=== PATIENT | male | born 1975 | race Two or more races ===

== ENCOUNTER 2017-09-19 | Emergency (ER) | payer SELFPAY ==
[2017-09-19] MEDS: cloNIDine HCL 0.1 MG TABLET PO ×4 (00:56→02:02)
[2017-09-19] MEDS: ONDANSETRON ODT 4 MG TAB.RAPDIS. PO ×2 (00:56)
[2017-09-19] MEDS: oxyCODONE/APAP 10/325 1 TAB TABLET PO ×2 (02:54)
== END 2017-09-19 03:30 | disposition home or self-care (01) ==
LOC: ER
DX: I10 Essential (primary) hypertension (principal); E11.9 Type 2 diabetes mellitus without complications; F14.10 Cocaine abuse, uncomplicated; F10.20 Alcohol dependence, uncomplicated
CPT/HCPCS: 70450; 99284-25; Q0162

== ENCOUNTER 2017-10-05 22:10 | Emergency (ER) | payer SELFPAY ==
[2017-10-05 22:45] LABS: BILIRUBIN,URINE NEGATIVE (NEG); CLARITY,URINE CLOUDY; COLOR,URINE OTHER; GLUCOSE,URINE 250 mg/dL (NEG); NITRITE,URINE NEGATIVE (NEG); PH,URINE 6.5; PROTEIN,URINE >=300 mg/dL (NEG-TRACE); UROBILINOGEN,URINE 0.2 mg/dL (0.2 mg/dL)
[2017-10-05 22:49] LABS: RBC,URINE TNTC /HPF (0-2)
[2017-10-05 22:51] LABS: BACTERIA,URINE 0 /HPF (0-FEW); SQUAMOUS EPITHELIAL CELL,UR OCC /LPF; WBC,URINE 0 /HPF (0-4)
[2017-10-05 23:32] LABS: POC GLUCOSE 125 mg/dL (70-99)
[2017-10-05 23:57] LABS: ADD MAN DIFF? NO
[2017-10-06] LABS: BASO % 1 % (0-3); EOS # 0.2 x10^3/uL (0.0-0.7); EOS % 2 % (0-3); HEMATOCRIT 32.8 % (39.0-53.0); HEMOGLOBIN 11.5 g/dL (13.0-17.5); LYMPH # 2.3 x10^3/uL (1.0-4.8); LYMPH % 31 % (24-48); MEAN CORPUSCULAR HEMOGLOBIN 30 pg (25-35); MEAN CORPUSCULAR HGB CONC 35 g/dL (31-37); MEAN CORPUSCULAR VOLUME 86 fL (79-100); MONO # 0.5 x10^3/uL (0.0-1.1); MONO % 6 % (0-9); NEUT # 4.5 x10^3uL (1.8-7.7); NEUT % 60 % (31-73); PLATELET COUNT 200 x10^3/uL (140-400); RED BLOOD COUNT 3.81 x10^6/uL (4.30-5.70); RED CELL DISTRIBUTION WIDTH 13.9 % (11.5-14.5); WHITE BLOOD COUNT 7.6 x10^3/uL (4.0-11.0)
[2017-10-06 00:06] LABS: ANION GAP 7 (6-14); BLOOD UREA NITROGEN 27 mg/dL (8-26); BUN/CREATININE RATIO 27 (6-20); CALCIUM 8.6 mg/dL (8.5-10.1); CARBON DIOXIDE 30 mmol/L (21-32); CHLORIDE 105 mmol/L (98-107); GFR 82.3; GLUCOSE 124 mg/dL (70-99); POTASSIUM 3.9 mmol/L (3.5-5.1); SODIUM 142 mmol/L (136-145)
[2017-10-06 00:11] LABS: ALBUMIN 2.7 g/dL (3.4-5.0); ALBUMIN/GLOBULIN RATIO 0.7 (1.0-1.7); ALK PHOS 73 U/L (46-116); ALT (SGPT) 19 U/L (16-63); AST (SGOT) 17 U/L (15-37); TOTAL BILIRUBIN 0.2 mg/dL (0.2-1.0); TOTAL PROTEIN 6.5 g/dL (6.4-8.2)
[2017-10-06] MEDS: KETOROLAC 60 MG/2 ML INJ. IM ×2 (00:49)
== END 2017-10-06 00:54 | disposition home or self-care (01) ==
LOC: ER 10-06 00:54
DX: N30.91 Cystitis, unspecified with hematuria (principal); N41.9 Inflammatory disease of prostate, unspecified; K59.00 Constipation, unspecified; E11.9 Type 2 diabetes mellitus without complications; I10 Essential (primary) hypertension; Z79.84 Long term (current) use of oral hypoglycemic drugs
CPT/HCPCS: 36415; 74176; 80053; 81001; 82962; 85025; 87086; 87491; 87591; 96372; 99285-25; J1885